=== PATIENT | female | born 1960 | race Caucasian/White ===

== ENCOUNTER 2021-11-05 16:37 | Emergency (ER) | payer OTHER, SELFPAY ==
--- NOTE | 2021-11-05 16:38 | XRR_ITS ---
PROCEDURE INFORMATION: Exam: XR Right Ankle Exam date and time: 11/05/2021 4:38 PM Age: 61 years old Clinical indication: Injury or trauma; Fall; Blunt trauma; Ankle; Right; Additional info: S/P fall TECHNIQUE: Imaging protocol: XR Right ankle. Views: 3 or more views. COMPARISON: No relevant prior studies available. FINDINGS: Bones/joints: Minimally displaced trimalleolar fracture. Joint spaces are preserved. Soft tissues: Soft tissue swelling around the ankle. XR/XR ankle RT min 3V* [id number] IMPRESSION: Minimally displaced trimalleolar ankle fracture.
[2021-11-05 16:41] VITALS: BP 156/75; PULSE 67; RESP 14; TEMP 37.2; O2SAT 96; BMI 27.3
[2021-11-05 16:48] VITALS: BP 155/75; PULSE 68; RESP 16; O2SAT 93
--- NOTE | 2021-11-05 17:03 | ED_ITS ---
HPI - Fall General: Chief Complaint: Fall Stated Complaint: RIGHT ANKLE PAIN S/P FALL Time Seen by Provider: 11/05/21 16:53 Source: patient Mode of arrival: EMS Limitations: no limitations History of Present Illness: Patient reports that she was walking outside and slipped and fell injuring her right ankle. Patient appears well. Patient appears in mild pain. Patient does have some obvious swelling to the lateral right ankle. Distal pulses and sensation are intact. Patient does have a history of benign tremor and coronary artery disease. Review of patient's medications note antihypertensives, and benzodiazepines. No routine anticoagulant or antiplatelets are noted. MD complaint: fall Onset (ago): minute(s) Fall from: standing Fall witnessed: yes, by bystander Place fall occurred: street Loss of consciousness: None Prolonged down time: no Symptoms prior to fall: none Context: tripped/slipped Location of injury - extremities: Right: ankle Severity: mild Quality: aching Associated symptoms-after fall: Reports no associated symptoms; Denies chest pain or headache(s) Review of Systems General: Reports: 10 or more systems reviewed and unremarkable except in HPI and below Const: Denies: chills Card: Denies: chest pain Musc: Reports: joint pain (Right ankle) and joint swelling (Right ankle) Skin/Breast: Denies: new lesions Neuro: Denies: headache(s) Fadi/Lymph: Denies: easy bruising or easy bleeding Physical Exam Const: COMMON NORMALS: no acute distress, patient oriented x3 and alert HENMT: COMMON NORMALS: atraumatic HEAD & SCALP: atraumatic Eye: COMMON NORMALS: Equal, round and reactive pupils present and EOMs intact bilaterally PUPIL: Yes Equal, round and reactive pupils present Neck/C-Spine: COMMON NORMALS: full ROM Resp: COMMON NORMALS: normal respiratory effort and clear to auscultation bilaterally AUSCULTATION: clear to auscultation bilaterally Cardio: COMMON NORMALS: regular rate and regular rhythm RATE: regular rate RHYTHM: regular rhythm GI: COMMON NORMALS: Soft to palpation PALPATION: Yes Soft to palpation and No Tenderness to palpation present (GI) Extremity: RIGHT LOWER EXTREMITY: Yes foot & digits (Lateral ankle swelling, tenderness, distal pulses and sensation intact) Right ankle: Yes inspection, Yes palpation, Yes ROM and Yes neurovascular exam Neuro: COMMON NORMALS: patient oriented x3 SENSORIUM/ORIENTATION: Yes alert Psych: COMMON NORMALS: cooperative Skin: COMMON NORMALS: no rashes or lesions noted GENERAL SKIN EXAM: no rashes or lesions noted Course Vital Signs: Vital signs: Vital Signs Temperature 98.9 F 11/05/21 16:41 Pulse Rate 68 11/05/21 16:48 Respiratory Rate 16 11/05/21 16:48 Blood Pressure 155/75 11/05/21 16:48 Pulse Oximetry 93 11/05/21 16:48 MDM - Fall Medical Decision Making 61-year-old female comes in with injury to the right ankle. On exam she has lateral swelling. Distal pulses and sensation are intact. Tenderness is noted to palpation. No obvious dislocation is noted. Differential diagnosis includes fracture, sprain, dislocation. X-ray was negative for dislocation, patient did have a fracture of the lateral and medial malleus. Reviewed exam with patient with recommendations for treatment follow-up with orthopedist or ankle foot surgeon. Patient was placed in a PML splint. Patient agreed to plan of treatment and need for follow-up. Lab Data Radiology Impressions Ankle X-Ray 11/05/21 16:38 IMPRESSION: Minimally displaced trimalleolar ankle fracture. Discharge Plan Discharge Patient Disposition: Home Clinical Impression: Closed right ankle fracture Condition: Stable Prescriptions: New hydrocodone-acetaminophen 5-325 mg tablet 1 tab PO Q6H PRN (Reason: pain (scale score 7-10)) Qty: 7 0RF Discharge Orders: Discharge ED (Routine); Ordered 11/05/21 Ordered By: Morgan Neil Other Ambulatory Orders: DME: Cane/ Crutches (Order) Location: None Selected Ordered By: Morgan Neil Discharge Diet: Usual diet Discharge Activity: Limit activity as instructed Patient Instructions: Ankle Fracture (ED), Opioid Safety Activity Restrictions/Additional Instructions: Keep splint clean and dry. Activity as tolerated. Keep leg elevated as much as possible. Use acetaminophen or ibuprofen for pain. Use hydrocodone for breakthrough pain. Use ice to the extremity to help with pain and swelling. Follow-up with orthopedist, or public health sanitarian technician for further evaluation and treatment. Case management was requested to help with the referral. Coding Level of Care Code ED Special Event Assistant for Cal Choudhary History Problem Focused Exam Comprehensive Medical Decision Making Low Complexity Time Spent (min) 20
[2021-11-05 18:19] VITALS: BP 123/77; PULSE 82; RESP 16; O2SAT 96
--- NOTE | 2021-11-06 10:19 | DCPLANNER ---
Addendum entered by Kristen Harp 11/10/21 06:40: Patient had a follow up appointment scheduled for 11.06.[address] Francisco at ortho - patient did attend appointment. Original Note: sales engineering manager had message to schedule a follow up appointment for patient with ortho. sales engineering manager called the ortho clinic spoke with Thania, gave clinic patients information. sales engineering manager was told that patients information would be printed and reviewed. Clinic will call patient with appointment information.
== END 2021-11-05 18:39 | disposition home or self-care (01) ==
PROVIDERS: Emergency Provider Nurse Practitioner Family
DX: S82.851A Displaced trimalleolar fracture of right lower leg, initial encounter for closed fracture (principal); W01.0XXA Fall on same level from slipping, tripping and stumbling without subsequent striking against object, initial encounter
CPT/HCPCS: 29515; 73610; 99283; A4590

== ENCOUNTER 2021-11-06 16:13 | Outpatient (CLI) | payer OTHER, SELFPAY | END 2021-11-06 16:14 | disposition home or self-care (01) | LOC: SPT 16:14 | PROVIDERS: Visit Provider Podiatrist Foot & Ankle Surgery | DX: Z46.89 Encounter for fitting and adjustment of other specified devices (principal); S82.851D Displaced trimalleolar fracture of right lower leg, subsequent encounter for closed fracture with routine healing; X58.XXXD Exposure to other specified factors, subsequent encounter | CPT/HCPCS: 87635; 97760; L4361 ==

== ENCOUNTER 2021-11-09 11:07 | Day surgery (SDC) | payer OTHER, SELFPAY ==
[2021-11-08 15:33] VITALS: BMI 27.3
[2021-11-09] VITALS (7 sets, daily range): BP systolic 113–152; BP diastolic 68–101; PULSE 62–96; RESP 16–18; TEMP 36.3–36.9; O2SAT 95–98
--- NOTE | 2021-11-09 | SCC_ITS ---
Procedure done: Open reduction internal fixation right trimalleolar fracture. CPT 16525 29 seconds of fluoroscopic guidance, for a cumulative dose of 0.577 mGy, was provided to Dr. Francisco by the radiology department. C-arm images of the RIGHT ankle were saved for the patient's permanent record. [facility]
--- NOTE | 2021-11-09 11:46 | ANES.PREANE2 ---
Pre-Anesthetic Assessment Height/Weight: Height 1.7 m Weight 79.379 kg Temp Pulse Resp BP Pulse Ox 98.5 F 62 18 152/84 98 11/09/21 11:39 11/09/21 11:39 11/09/21 11:39 11/09/21 11:39 11/09/21 11:39 Preop Diagnosis: Right trimlleolar fracture Operation Date: 11/09/21 12:00 Proposed Procedures p ORIF Trimalleolar Ankle 15398/s82.851A(Right) - Andrés Francisco DPM Familial anesthetic complications: None Was Beta Lala taken within 24 hours: Yes Was Clonidine taken within 24 hours: N/A Last intake: > 8 hrs Social No alcohol and No tobacco Exam alert, oriented x 3, clear to auscultation bilaterally and regular rate & rhythm Airway Mallampati: Class I Dentition: false CV/HEM Hypertension and Myocardial Infarction (several years ago) Able to achieve > 4 METS Anesthetic Plan ASA status: 3 Anesthesia: General and Regional (specify below) Medications/Allergies Home Medications Medication Instructions Recorded Confirmed Last Taken Type hydrocodone 5 mg-acetaminophen 325 1 tab PO Q6H PRN #7 tab 11/05/21 11/09/21 11/08/21 Rx mg tablet CAM walker #1 ea 11/06/21 11/06/21 Unknown Rx aspirin 81 mg tablet,delayed 81 mg PO DAILY 11/06/21 11/09/21 11/06/21 History release atorvastatin 20 mg tablet 20 mg PO DAILY 11/06/21 11/09/21 11/08/21 History cholecalciferol (vitamin D3) 25 25 mcg PO DAILY 11/06/21 11/09/21 11/08/21 History mcg (1,000 unit) capsule clonazepam 0.5 mg tablet 0.5 mg PO DAILY 11/06/21 11/09/21 11/08/21 History metoprolol succinate 25 mg 12.5 mg PO DAILY 11/06/21 11/09/21 11/09/21 08:00 History tablet,extended release 24 hr sertraline 50 mg tablet 50 mg PO DAILY 11/06/21 11/09/21 11/08/21 History telmisartan 20 mg tablet 20 mg PO DAILY 11/06/21 11/09/21 11/08/21 History wheelchair #1 ea 11/06/21 11/06/21 Unknown Rx Allergies Allergy/AdvReac Type Severity Reaction Status Date / Time No Known Allergies Allergy Verified 11/09/21 11:36 Data Anesthesia Cardiac Studies: No Data to Display
[2021-11-09] MEDS: sodium chloride 0.9% 1,000 ML 30 ML IV (11:50)
--- NOTE | 2021-11-09 11:59 | W.PM.OPSUD ---
Surgery/Procedure H&P Update DATE OF PROCEDURE: November 09, 2021 DATE H&P PERFORMED: 11/06/21 CHANGES TO PREVIOUS DOCUMENTATION: none PREOP DIAGNOSIS: Right trimlleolar fracture PLANNED PROCEDURE: Operation Date: 11/09/21 12:00 Proposed Procedures p ORIF Trimalleolar Ankle 62403/s82.851A(Right) - Andrés Francisco DPM
--- NOTE | 2021-11-09 12:04 | XR_ITS ---
WS: [id number] XR ankle RT min 3V* [id number] REASON FOR EXAM: post op orif tri mal FINDINGS: Lateral plate and screw and transverse tibiofibular anchors are fixation of fibular fracture which in volves the syndesmosis. Long screw fixation of nondisplaced medial malleolar fracture. Nondisplaced posterior malleolar fracture. Surgical appliances are in proper position and alignment. Bone fragments are in proper position and a lignment. Ankle joint anatomy is preserved. XR/XR ankle RT min 3V* [id number] IMPRESSION: Fixation of complex ankle fracture as above with no abnormality.
--- NOTE | 2021-11-09 12:04 | PM.OP ---
Operative Report Date of procedure: November 09, 2021 Pre-op diagnosis: Right trimlleolar fracture Post-op diagnosis: Same Post-op findings: None Procedure done: Open reduction internal fixation right trimalleolar fracture. CPT 16821 Implants: [place] anatomic fibular plate, [place] 3.5 mm locking screws, Dary headed 4.0 millimeters screws x2, Arthrex tight rope XP, 2-0 Vicryl, 3-0 Vicryl, skin wendy, 4-0 nylon. Specimens removed/disposition: None Pathology: None Surgeon: Andrés Francisco D.P.M. Documentation Billing Clerk: Gerardo Estimated blood loss: 25 48 IV fluids: 0 Urine output: None Complications: None Findings: None Brief History: Patient slipped on ice sustained a trimalleolar right ankle fracture, recommended open reduction internal fixation as the extent of her fractures because gross instability of the right ankle. Risks include pain, bleeding, numbness, infection, hardware failure, hardware rotation, delayed union, malunion, nonunion, surgical site dehiscence, bruising, damage to adjacent soft tissue structures, high likelihood of posttraumatic arthritis and decreased range of motion of the right ankle in the future. Also risk for deep vein thrombosis, heart attack, stroke and . COVID screening was negative. Informed consent signed by patient and myself. I initialed her right lower extremity preoperatively and answered all questions to her satisfaction. No guarantees written, expressed or implied. Procedure: Under mild sedation the patient was brought to the operating room and placed on the operating table in supine position. A timeout was performed. Anesthesia was then administered by the anesthesia service. Local anesthesia injected by myself consisting of 10 cc of 0.5% Marcaine plain and a medial ankle block fashion. Popliteal block performed per anesthesia preoperatively. Well-padded pneumatic tourniquet applied to the right high calf. The right lower extremity was then scrubbed, prepped and draped utilizing normal aseptic technique. The right foot and ankle were exsanguinated with an Esmarch bandage and the tourniquet inflated to 250 mmHg. Attention was directed to the right lateral ankle where a linear longitudinal incision was made directly over the lateral malleolus and at the distal fibula. Dissection was carried down through skin and subcutaneous tissue utilizing a combination of blunt and sharp technique. Care was taken to retract and preserve neurovascular and tendinous structures. All bleeders were ligated and cauterized as necessary. A linear periosteal incision was made in the fracture of the right distal fibula was appreciated. It was curettaged of fracture hematoma and flushed with saline followed by reduction utilizing [id number] reduction forceps. This was then fixated utilizing standard AO technique, this was fixated utilizing a [place] anatomic fibular plate with various lengths of 3.5 mm locking screws. Did not perform an interfrag screw as this would likely obstruct a syndesmotic repair utilizing a tight rope due to the level of the fracture and the need for syndesmotic stabilization. Next attention was directed to the medial malleolus where percutaneously and utilizing standard AO technique [place] headed 4.0 millimeter screws x2 in were utilized to fixate the medial malleolus with excellent bony apposition and compression noted. Positioning of lateral and medial hardware was confirmed in all 3 planes utilizing intraoperative fluoroscopy and noted to be excellent in all 3 planes. Cotton hook test showed diastases of the tib-fib clear space and positive for syndesmotic disruption. Parallel to the ankle mortise and approximately 2 cm proximal a syndesmotic tight rope was utilized per channel business manager recommendation and technique with excellent stabilization of the syndesmosis appreciated once fixated. This was fixated with the ankle in neutral position to not over tighten. Incision sites were flushed with saline solution and closed with layered fashion at the lateral incision utilizing 2-0 Vicryl, 3-0 Vicryl and skin wendy. Skin wendy and nylon medially utilized for closure. Incision sites were dressed with Adaptic, sterile 4 x 4, Kerlix and Mayito wrap followed by application of a cam boot. Tourniquet was then deflated and a prompt hyperemic response was noted to the distal digits of the right foot. Patient tolerated the procedure and anesthesia well and was transferred to the PACU with vital signs stable and vascular status intact. Following a period of postoperative monitoring she will be discharged home is to remain strict nonweightbearing to the right foot and ankle and is to elevate her right lower extremity at all times while resting. She was given at home care instructions and follow-up as well as my cell phone number to contact me with any postoperative questions or concerns.
--- NOTE | 2021-11-09 12:06 | ANES.PROC ---
Anesthesia Procedures Procedure/Date: 11/09/21 Nerve Block ^: Nerve Block 1: Main Anesthesia: general anesthesia Time Out Performed: Yes Consent: requested by attending/covering physician, from patient, risks and benefits reviewed and patient agrees to proceed Nerve block location: popliteal (R) Anesthesia monitors applied: pulse oximetry, EKG and BP cuff Nerve block position: semi sitting Anesthetic Used: ropivicaine 0.5% (30) and with decadron (4 mg) Ultrasound used to: recognize landmarks Nerve Stimulator Used?: No Interscalene/Femoral BLK: 4 stimuplex 21 g needle used for position and inplane approach, visualize local anesthetic spread and no vascular puncture identified Injection: neg aspiration of heme Patient Tolerated Procedure: well and no complications Complications: none
--- NOTE | 2021-11-09 14:18 | ANE.PACU2 ---
Inpatient post-anesthesia follow up: Airway intact: Yes Vital signs: Temperature 97.3 F Pulse Rate 84 Respiratory Rate 18 Blood Pressure 131/101 Pulse Oximetry 96 Oxygen Delivery Me thod Room Air Oxygen Flow Rate Fraction of Inspir ed Oxygen Hydration adequate: Yes Nausea and vomiting: Yes Pain level: 2 Mental status: Baseline
== END 2021-11-09 14:19 | disposition home or self-care (01) ==
PROVIDERS: PCP Family Medicine; Visit Provider Podiatrist Foot & Ankle Surgery
PROC: (CPT 27822; principal; 2021-11-09 12:00)
DX: S82.851A Displaced trimalleolar fracture of right lower leg, initial encounter for closed fracture (principal); W00.0XXA Fall on same level due to ice and snow, initial encounter; Z79.82 Long term (current) use of aspirin; I10 Essential (primary) hypertension; I25.2 Old myocardial infarction
CPT/HCPCS: 27822; 64450; 73610; 76000; 76942; C1713; J0690; J1100; J2405; J2704; J2795; J3010; J3490; J7030

== ENCOUNTER → 2021-11-27 15:23 | Outpatient (BNVA) | payer OTHER, SELFPAY | PROVIDERS: PCP Family Medicine; Visit Provider Podiatrist Foot & Ankle Surgery | DX: Z47.89 Encounter for other orthopedic aftercare (principal); S82.851D Displaced trimalleolar fracture of right lower leg, subsequent encounter for closed fracture with routine healing; W00.9XXD Unspecified fall due to ice and snow, subsequent encounter | CPT/HCPCS: 73610 ==

== ENCOUNTER → 2021-12-13 15:14 | Outpatient (BNVA) | payer OTHER, SELFPAY | PROVIDERS: PCP Family Medicine; Visit Provider Podiatrist Foot & Ankle Surgery | DX: Z98.890 Other specified postprocedural states (principal) | CPT/HCPCS: 73610 ==

== ENCOUNTER → 2021-12-27 13:38 | Outpatient (BNVA) | payer OTHER, SELFPAY | PROVIDERS: PCP Family Medicine; Visit Provider Podiatrist Foot & Ankle Surgery | DX: Z98.890 Other specified postprocedural states (principal) | CPT/HCPCS: 73610 ==

== ENCOUNTER 2021-12-27 15:16 | Outpatient (CLI) | payer OTHER, SELFPAY | END 2021-12-27 15:17 | disposition home or self-care (01) | LOC: SPT 15:17 | PROVIDERS: PCP Family Medicine; Visit Provider Podiatrist Foot & Ankle Surgery | DX: Z46.89 Encounter for fitting and adjustment of other specified devices (principal); M25.571 Pain in right ankle and joints of right foot; Z98.890 Other specified postprocedural states; S82.891D Other fracture of right lower leg, subsequent encounter for closed fracture with routine healing; X58.XXXD Exposure to other specified factors, subsequent encounter | CPT/HCPCS: 97760; L1902 ==

== ENCOUNTER → 2022-01-18 15:33 | Outpatient (BNVA) | payer OTHER, SELFPAY | PROVIDERS: PCP Family Medicine; Visit Provider Podiatrist Foot & Ankle Surgery | DX: Z98.890 Other specified postprocedural states (principal) | CPT/HCPCS: 73610 ==

== ENCOUNTER → 2022-04-25 13:08 | Outpatient (BNVA) | payer OTHER, SELFPAY | PROVIDERS: PCP Family Medicine; Visit Provider Podiatrist Foot & Ankle Surgery | DX: Z98.890 Other specified postprocedural states (principal) | CPT/HCPCS: 73610 ==